=== PATIENT | female | born 1955 | race Caucasian/White ===

== ENCOUNTER 2016-10-29 22:48 | Emergency (ER) | payer OTHER ==
[~2016-10-29] VITALS: Wt 74.5 kg
[2016-10-30] MEDS ORDERED: SOD CHLORIDE 0.9% 500 ML IV STA (01:30)
[2016-10-30 02:11] LABS: ADD SCAN DIFF NO
[2016-10-30 02:12] LABS: BASOPHILS % 0.3 % (0.0-2.0); EOSINOPHILS # 0.1 10^3/ul (0.0-0.5); HEMATOCRIT 40.1 % (37.0-47.0); HEMOGLOBIN 13.4 g/dl (12.0-16.0); LYMPHOCYTES # 3.6 10^3/ul (0.8-2.9); LYMPHOCYTES % 45.9 % (15.0-51.0); MEAN CORPUSCULAR HEMOGLOBIN 29.6 pg (29.0-33.0); MEAN CORPUSCULAR HGB CONC 33.4 g/dl (32.0-37.0); MEAN CORPUSCULAR VOLUME 88.7 fl (82.0-101.0); MEAN PLATELET VOLUME 9.6 fl (7.4-10.4); MONOCYTE # 0.7 10^3/ul (0.3-0.9); MONOCYTES % 8.8 % (0.0-11.0); NEUTROPHIL # 3.4 10^3/ul (1.6-7.5); NEUTROPHILS % 43.6 % (39.0-77.0); PLATELET COUNT 287 10^3/UL (140-415); RED BLOOD COUNT 4.52 10^6/ul (4.20-5.40); RED CELL DISTRIBUTION WIDTH 12.8 % (11.5-14.5); WHITE BLOOD COUNT 7.8 10^3/ul (4.8-10.8)
[2016-10-30 02:27] LABS: INR 0.85; PROTIME 11.6 Sec (12.2-14.2); PT RATIO 0.9
[2016-10-30 02:28] LABS: PARTIAL THROMBOPLASTIN TIME 21.8 Sec (25.0-35.0)
[2016-10-30 02:29] LABS: ALANINE AMINOTRANSFERASE 40 IU/L (13-69); ALBUMIN 4.5 g/dl (3.3-4.9); ALBUMIN/GLOBULIN RATIO 1.87; ALKALINE PHOSPHATASE 80 IU/L (42-121); ANION GAP 13 (8-16); ASPARTATE AMINO TRANSFERASE 26 IU/L (15-46); BILIRUBIN,INDIRECT 0.3 mg/dl (0-1.1); BILIRUBIN,TOTAL 0.3 mg/dl (0.2-1.3); BLOOD UREA NITROGEN 13 mg/dl (7-20); CARBON DIOXIDE 26 mmol/L (21-31); CHLORIDE 105 mmol/L (97-110); CREATININE 0.51 mg/dl (0.44-1.00); GLUCOSE 333 mg/dl (70-220); POTASSIUM 3.9 mmol/L (3.5-5.1); SODIUM 140 mmol/L (135-144); TOTAL PROTEIN 6.9 g/dl (6.1-8.1)
[2016-10-30 02:41] LABS: B-TYPE NATRIURETIC PEPTIDE 147 PG/ML (0-125)
[2016-10-30 02:53] LABS: TROPONIN-I < 0.012 ng/ml (0.00-0.12)
--- NOTE | 2016-10-30 03:05 | RADRPT ---
PROCEDURE: XR Chest. CLINICAL INDICATION: Chest pain. TECHNIQUE: Single frontal chest x-ray. COMPARISON: None. FINDINGS: Heart is normal size. The descending aorta is mildly ectatic.. There is no congestive heart failur e.. No focal infiltrate is seen. There is no pleural effusion. There is no pneumothorax. The osse ous structures are unremarkable. IMPRESSION: No CHF or infiltrate. Mildly ectatic descending aorta. RPTAT: [facility] .Chele Drummond MD, MD Date Time Electronically viewed and signed by .Chele Drummond MD, on 10/30/2016 03:04 .K/
[2016-10-30 03:38] LABS: ADD UMIC NO; URINE BILIRUBIN (Dip) NEGATIVE (NEGATIVE); URINE BLOOD (Dip) NEGATIVE (NEGATIVE); URINE COLOR LT. YELLOW (YELLOW); URINE GLUCOSE (Dip) >=1000 % (NEGATIVE); URINE KETONES (Dip) NEGATIVE (NEGATIVE); URINE LEUKOCYTE ESTERASE (Dip) NEGATIVE (NEGATIVE); URINE NITRITE (Dip) NEGATIVE (NEGATIVE); URINE TOTAL PROTEIN (Dip) NEGATIVE (NEGATIVE); URINE UROBILINOGEN (Dip) 0.2 E.U./dL (0.1-1.0)
[2016-10-30] MEDS ORDERED: GLIP-95 PO (04:23)
[2016-10-30] MEDS ORDERED: METR500T14 PO (04:23)
[2016-10-30] MEDS ORDERED: LISI20TA11 PO (04:23)
[2016-10-30] MEDS ORDERED: ASPI81TA3 PO (04:23)
[2016-10-30] MEDS ORDERED: HYDR-906 PO (04:23)
[2016-10-30] MEDS ORDERED: LANT3I SC (04:23)
[2016-10-30] MEDS ORDERED: SIMV20TA PO (04:23)
[2016-10-30] MEDS ORDERED: LEVO750T8 PO (04:23)
--- NOTE | 2016-10-30 05:39 | ERD ---
ER Documentation Chief Complaint Date/Time DATE: 10/30/16 TIME: 05:35 Chief Complaint Dizziness and weakness since this morning. Hx of DM and HTN HPI This is a 61 year female who comes in with complaints of dizziness and weakness since this morning. She denies any chest pain. She has any fevers or chills. No shortness of breath. She does feels slightly lethargic. She also feels slightly lightheaded. ROS All systems reviewed and are negative except as per history of present illness. Medications Home Meds Reported Medications Insulin Glargine* (Lantus*) 100 Unit/Ml Soln, 30 UNIT SC BID, #1 VIAL 10/30/16 Simvastatin* (Zocor*) 20 Mg Tablet, 20 MG PO QHS, #30 TAB 10/30/16 Aspirin* (Aspirin* Chew) 81 Mg Tab.chew, 81 MG PO DAILY, TAB.CHEW 10/30/16 Glipizide* (Glipizide*) 10 Mg Tablet, 20 MG PO BID, TAB 10/30/16 Levofloxacin* (Levofloxacin*) 750 Mg Tablet, 750 MG PO DAILY, TAB 10/30/16 Lisinopril* (Lisinopril*) 20 Mg Tablet, 20 MG PO DAILY, #30 TAB 10/30/16 Hydrocodone/Acetaminophen ([place] 5-325 Tablet) 1 Each Tablet, 1 EACH PO, TAB 10/30/16 Metronidazole* (Metronidazole*) 500 Mg Tablet, 500 MG PO Q8, TAB TAKE 1 TAB Q8 FOR 14 DAYS 10/30/16 Allergies Allergies: Coded Allergies: No Known Allergy (Unverified , 10/29/16) PMhx/Soc Hx Cardiac Disorders: Yes (htn) Hx Alcohol Use: No Hx Substance Use: No Hx Tobacco Use: No Smoking Status: Never smoker Physical Exam Vitals Vital Signs Date Time Temp Pulse Resp B/P Pulse Ox O2 Delivery O2 Flow Rate FiO2 10/30/16 01:55 62 18 136/70 98 Room Air 10/29/16 23:05 97.4 65 20 161/76 98 Physical Exam Const: [] Head: Atraumatic Eyes: Normal Conjunctiva ENT: Normal External Ears, Nose and Mouth. Neck: Full range of motion..~ No meningismus. Resp: Clear to auscultation bilaterally Cardio: Regular rate and rhythm, no murmurs Abd: Soft, non tender, non distended. Normal bowel sounds Skin: No petechiae or rashes Back: No midline or flank tenderness Ext: No cyanosis, or edema Neur: Awake and alert Psych: Normal Mood and Affect Result Diagram: 10/30/16 0153 10/30/16 0153 Results 24 hrs Laboratory Tests Test 10/29/16 23:15 10/30/16 01:53 10/30/16 01:55 10/30/16 02:41 Bedside Glucose 419mg/dL 322mg/dL White Blood Count 7.810^3/ul Red Blood Count 4.5210^6/ul Hemoglobin 13.4g/dl Hematocrit 40.1% Mean Corpuscular Volume 88.7fl Mean Corpuscular Hemoglobin 29.6pg Mean Corpuscular Hemoglobin Concent 33.4g/dl Red Cell Distribution Width 12.8% Platelet Count 22372^3/UL Mean Platelet Volume 9.6fl Neutrophils % 43.6% Lymphocytes % 45.9% Monocytes % 8.8% Eosinophils % 1.0% Basophils % 0.3% Nucleated Red Blood Cells % 0.0/100WBC Neutrophils # 3.410^3/ul Lymphocytes # 3.610^3/ul Monocytes # 0.710^3/ul Eosinophils # 0.110^3/ul Basophils # 0.010^3/ul Nucleated Red Blood Cells # 0.010^3/ul Prothrombin Time 11.6Sec Prothrombin Time Ratio 0.9 INR International Normalized Ratio 0.85 Activated Partial Thromboplast Time 21.8Sec Sodium Level 140mmol/L Potassium Level 3.9mmol/L Chloride Level 105mmol/L Carbon Dioxide Level 26mmol/L Anion Gap 13 Blood Urea Nitrogen 13mg/dl Creatinine 0.51mg/dl Glucose Level 333mg/dl Calcium Level 9.0mg/dl Total Bilirubin 0.3mg/dl Direct Bilirubin 0.00mg/dl Indirect Bilirubin 0.3mg/dl Aspartate Amino Transf (AST/SGOT) 26IU/L Alanine Aminotransferase (ALT/SGPT) 40IU/L Alkaline Phosphatase 80IU/L Troponin I < 0.012ng/ml B-Type Natriuretic Peptide 147PG/ML Total Protein 6.9g/dl Albumin 4.5g/dl Globulin 2.40g/dl Albumin/Globulin Ratio 1.87 Urine Color LT. YELLOW Urine Clarity CLEAR Urine pH 6.0 Urine Specific [place] 1.015 Urine Ketones NEGATIVE Urine Nitrite NEGATIVE Urine Bilirubin NEGATIVE Urine Urobilinogen 0.2 E.U./dL Urine Leukocyte Esterase NEGATIVE Urine Hemoglobin NEGATIVE Urine Glucose >=1000% Urine Total Protein NEGATIVE Current Medications Medications (Trade) Dose Ordered Sig/Dennis Route PRN Reason Start Time Stop Time Status Last Admin Dose Admin Sodium Chloride (NS) 500 ml @ 500 mls/hr Q1H STAT IV 10/30/16 01:30 10/30/16 02:29 DC 10/30/16 01:56 Procedures/MDM EKG: Rate/Rhythm: [Normal Sinus Rhythm] QRS, ST, T-waves: [No changes consistent w/ acute ischemia] Impression: [No evidence of ischemia or arrhythmia] Chest X-ray 1V Interpreted by me: Soft Tissue: No acute abnormalities Bones: No acute abnormalities Mediastinum/Cardiac Silhouette/Lungs: [No acute abnormalities] Medical decision-making: This is a very pleasant 61 year female comes with nondescript complaints of "dizziness" and a generalized feeling of unwell. At this point she is significantly improved with hydration here in the ER. Should her sugars of also come down. No evidence of DKA. At this point she is well- appearing, stable for outpatient management. Told to return for any return of symptoms immediately. Otherwise follow-up PCP for blood sugar regimen change Departure Diagnosis: Primary Impression: Dizziness Additional Impression: Hyperglycemia Condition: Stable Patient Instructions: Dizziness, Unk Cause AHSAN GONZALEZ Oct 30, 2016 05:39
[2016-10-30 05:46] VITALS: BP 153/79; PULSE 80; RESP 16
== END 2016-10-30 05:48 | disposition home or self-care (01) ==
LOC: E/R 22:48
DX: R42 Dizziness and giddiness (principal); I10 Essential (primary) hypertension; E11.65 Type 2 diabetes mellitus with hyperglycemia; R07.9 Chest pain, unspecified; Z79.82 Long term (current) use of aspirin; Z79.84 Long term (current) use of oral hypoglycemic drugs
CPT/HCPCS: 36415; 71010; 80053; 81003; 82962; 83880; 84484; 85025; 85610; 85730; 93005; J7040; Z7502

== ENCOUNTER 2017-03-21 07:16 | Day surgery (SDC) | payer OTHER ==
[~2017-03-21] VITALS: Ht 162.6 cm; Wt 74.7 kg
[~2017-03-21 07:16] MED LIST: ASPI81TA3 PO; GLIP-95 PO; HYDR-906 PO; LANT3I SC; LEVO750T8 PO; LISI20TA11 PO; METR500T14 PO; SIMV20TA PO
[2017-03-21 08:01] VITALS: BP 125/68; PULSE 67; RESP 15
--- NOTE | 2017-03-21 08:52 | OPPN ---
Date/Time of Note Date/Time of Note DATE: 03/21/17 TIME: 08:51 Operative Report Preoperative Diagnosis Screening colonoscopy Postoperative Diagnosis Small sigmoid colon polyp was removed Internal hemorrhoids Operation/Procedure Performed Colonoscopy and biopsy Surgeon see signature line marketing director assisted living None Anesthesia: moderate sedation Estimated blood loss: none Transfusion Required none Specimen Colon polyp Grafts/Implants none Complications none LOUISA OBRIEN MD Mar 21, 2017 08:52
--- NOTE | 2017-03-21 08:52 | OPPN ---
Date/Time of Note Date/Time of Note DATE: 03/21/17 TIME: 08:51 Operative Report Preoperative Diagnosis Screening colonoscopy Postoperative Diagnosis Small sigmoid colon polyp was removed Internal hemorrhoids Operation/Procedure Performed Colonoscopy and biopsy Surgeon see signature line technical support assistant None Anesthesia: moderate sedation Estimated blood loss: none Transfusion Required none Specimen Colon polyp Grafts/Implants none Complications none LOUISA OBRIEN MD Mar 21, 2017 08:52
--- NOTE | 2017-03-21 08:52 | OPPN ---
Date/Time of Note Date/Time of Note DATE: 03/21/17 TIME: 08:51 Operative Report Preoperative Diagnosis Screening colonoscopy Postoperative Diagnosis Small sigmoid colon polyp was removed Internal hemorrhoids Operation/Procedure Performed Colonoscopy and biopsy Surgeon see signature line pediatric dental assistant None Anesthesia: moderate sedation Estimated blood loss: none Transfusion Required none Specimen Colon polyp Grafts/Implants none Complications none LOUISA OBRIEN MD Mar 21, 2017 08:52
[2017-03-21] MEDS ORDERED: MIDAZOLAM 1 MG/ML 2 ML INJ ONE ×2 (08:53)
[2017-03-21] MEDS ORDERED: FENTAnyl 50 MCG/ML VIAL ONE (08:54)
[2017-03-21 09:12] VITALS: BP 105/66; RESP 20
--- NOTE | 2017-03-21 12:12 | GILP ---
DATE OF PROCEDURE: NAME OF PROCEDURE: Colonoscopy and biopsy. SURGEON: Louisa Fernandez MD PREOPERATIVE DIAGNOSIS: Screening colonoscopy. POSTOPERATIVE DIAGNOSES 1. Colonoscopy all the way to the cecum. 2. Small sigmoid polyp was removed using biopsy forceps. 3. Internal hemorrhoids. INDICATION FOR THE PROCEDURE: Ms. Ashleigh Mckeon is a 61-year-old female patient who was noted to have positive occult blood in stool. The patient was scheduled for screening colonoscopy. The procedure and possible complications are well explained to the patient. The patient understood and consented to the procedure. DESCRIPTION OF PROCEDURE: Under the influence of fentanyl and Versed, the colonoscope was carefully introduced in the rectum and under direct vision, it was advanced all the way to the cecum. FINDINGS: The patient had a small sigmoid colon polyp and it was removed using the biopsy forceps. She had internal hemorrhoids. She tolerated the procedure very well and there was no complication from the procedure. At the end of the procedure, she was awake with stable vital signs and she was discharged home to the care of h er family. IMPRESSION: 1. Colonoscopy all the way to the cecum. 2. Small sigmoid colon polyp was removed using the biopsy forceps. 3. Internal hemorrhoids. PLAN: Next screening colonoscopy in 10 years. Dictated By: LOUISA RUEDA/SAULO Conf#: [id number] DID#: [id number]
== END 2017-03-21 21:02 | disposition home or self-care (01) ==
LOC: GIL 07:16
PROVIDERS: ATTEND Internal Medicine Gastroenterology
DX: Z12.11 Encounter for screening for malignant neoplasm of colon (principal); K63.5 Polyp of colon; K64.8 Other hemorrhoids; I10 Essential (primary) hypertension; E11.9 Type 2 diabetes mellitus without complications
CPT/HCPCS: 45380; 82962; 88305; J2250; J3010; Z7610